=== PATIENT | male | born 1960 | race Caucasian/White ===

== ENCOUNTER 2017-03-28 17:03 | Emergency (ER) | payer OTHER ==
[~2017-03-28] VITALS: Ht 185.4 cm; Wt 74.8 kg
--- NOTE | ~2017-03-28 | EKG ---
[address] [address] ELECTROCARDIOGRAM REPORT Name: KEVENAJAY Room #: DEP STACI Hill#: [id number] Admission: 03/28/17 Attend Phys: Discharge: 03/28/17 Date of : 56 Report #: [id number] THIS REPORT FOR: //name// [facility] ED Test Date: 2017-03-28 Test Time: 17:08:10 Pat Name: AJAY BACA Department: Room: Gender: Medical Parasitologist: GABRIELA : 1960 Requested By: Soo Ruiz Order Number: [id number] MD: Gurpreet Gipson Measurements Intervals [place] Rate: 54 P: 74 WY: 144 QRS: 42 QRSD: 92 T: 58 QT: 437 QTc: 415 Interpretive Statements Sinus rhythm No previous ECG available for comparison Electronically Signed On 03-28-2017 22:48:01 CDT by Gurpreet Gipson [email or web address] <ELECTRONICALLY SIGNED> By: Gurpreet Gipson MD 03/28/17 2248 1708 1708 Gurpreet Gipson MD /EDDI
[2017-03-28] MEDS ORDERED: MS CONTIN 60 MG60 M1 PO (17:54)
[2017-03-28] MEDS ORDERED: MORPHINE SULFAT15 M3 PO (17:54)
[2017-03-28] MEDS ORDERED: NITROGLYCERIN0.4 MG SUBLING (17:55)
[2017-03-28] MEDS ORDERED: TRAZODONE HCL100 MG PO (17:55)
[2017-03-28] MEDS ORDERED: ALTACE5 MG PO (17:56)
[2017-03-28] MEDS ORDERED: TOPROL XL25 MG PO (17:56)
[2017-03-28] MEDS ORDERED: RANEXA500 MG PO (17:56)
[2017-03-28] MEDS ORDERED: SYNTHROID25 MCG PO (17:57)
[2017-03-28] MEDS ORDERED: ZANTAC 150MG T150 MG PO (17:57)
[2017-03-28] MEDS ORDERED: CRESTOR20 MG PO (17:57)
[2017-03-28] MEDS ORDERED: ASA81BEC PO (17:57)
[2017-03-28] MEDS ORDERED: BUPROPION XL150 MG PO (17:58)
[2017-03-28] MEDS ORDERED: GRALISE300 MG PO (17:58)
[2017-03-28] MEDS ORDERED: COMPAZINE10 MG PO (17:59)
[2017-03-28] MEDS ORDERED: ZOFRAN ODT8 MG PO (17:59)
[2017-03-28] MEDS ORDERED: NEURONTIN 300300 M1 PO (18:02)
[2017-03-28] MEDS ORDERED: GRALISE600 MG PO (18:03)
[2017-03-28 18:30] LABS: BASOPHILS 0.8 % (0.0-2.0); EOSINOPHILS 3.6 % (0.0-3.0); HEMATOCRIT 41.3 % (42.0-52.0); LYMPHOCYTES 24.4 % (24.0-44.0); MCH 29.9 pg (26.0-34.0); MCHC 33.9 g/dL (28.0-37.0); MCV 88.1 fL (80.0-100.0); PLATELET COUNT 148 thou/uL (150-400); POLYS 64.2 % (36.0-66.0); RBC 4.69 mil/uL (4.50-6.00); RDW 12.8 % (10.5-14.5); WBC 4.7 thou/uL (4.0-11.0)
[2017-03-28 18:32] LABS: MANUAL DIFF NO
[2017-03-28 18:35] LABS: ANION GAP 5 mmol/L (7-16); BUN 13 mg/dL (7-18); CALCIUM 9.2 mg/dL (8.5-10.1); CHLORIDE 101 mmol/L (98-107); CO2 32 mmol/L (21-32); GLUCOSE 104 mg/dL (74-106); POTASSIUM 4.6 mmol/L (3.5-5.1); SODIUM 138 mmol/L (136-145)
[2017-03-28 18:45] LABS: TROPONIN-I < 0.04 ng/mL (<0.04-0.07)
[2017-03-28 20:46] VITALS: BP 106/50
== END 2017-03-28 20:48 | disposition home or self-care (01) ==
LOC: ER 17:03
PROVIDERS: Emergency Medicine
DX: R07.9 Chest pain, unspecified (principal); Z90.49 Acquired absence of other specified parts of digestive tract; Z86.73 Personal history of transient ischemic attack (TIA), and cerebral infarction without residual deficits; Z88.5 Allergy status to narcotic agent; Z91.041 Radiographic dye allergy status; Z91.040 Latex allergy status; Z88.8 Allergy status to other drugs, medicaments and biological substances

== ENCOUNTER → 2018-08-29 | Outpatient (CLI) | payer OTHER ==
[~2018-08-29] MED LIST: ALTACE5 MG PO; ASA81BEC PO; BUPROPION XL150 MG PO; COMPAZINE10 MG PO; CRESTOR20 MG PO; GRALISE300 MG PO; GRALISE600 MG PO; MORPHINE SULFAT15 M3 PO; MS CONTIN 60 MG60 M1 PO; NEURONTIN 300300 M1 PO; NITROGLYCERIN0.4 MG SUBLING; RANEXA500 MG PO; SYNTHROID25 MCG PO; TOPROL XL25 MG PO; TRAZODONE HCL100 MG PO; ZANTAC 150MG T150 MG PO; ZOFRAN ODT8 MG PO
== END ==
LOC: CAT 07:36
DX: Z47.82 Encounter for orthopedic aftercare following scoliosis surgery (principal); M51.34 Other intervertebral disc degeneration, thoracic region; M48.04 Spinal stenosis, thoracic region; M47.814 Spondylosis without myelopathy or radiculopathy, thoracic region; M47.816 Spondylosis without myelopathy or radiculopathy, lumbar region; M48.061 Spinal stenosis, lumbar region without neurogenic claudication; Z96.89 Presence of other specified functional implants